=== PATIENT | female | born 1995 | race Caucasian/White ===

== ENCOUNTER 2024-06-18 11:48 | Emergency (ER) | payer BC ==
[2024-06-18 12:00] VITALS: BP 114/78; PULSE 109; RESP 18; TEMP 100.8; BMI 31.3
[2024-06-18] MEDS ORDERED: guaiFENesin/D-METHORPHAN HB 10 ML UNIT-DOSE CUPS ONE (12:17)
[2024-06-18] MEDS ORDERED: IBUPROFEN 600 MG TABLET (FP) PO ONE (12:18)
[2024-06-18] MEDS: IBUPROFEN 600 MG TABLET (FP) PO ONE (12:25)
[2024-06-18] MEDS: guaiFENesin/D-METHORPHAN HB 10 ML UNIT-DOSE CUPS PO ONE (12:26)
== END 2024-06-18 13:22 | disposition home or self-care (01) ==
LOC: JERFT 11:48
DX: J10.1 Influenza due to other identified influenza virus with other respiratory manifestations (principal); R50.9 Fever, unspecified; R05.9 Cough, unspecified; M79.10 Myalgia, unspecified site; R09.81 Nasal congestion; R53.83 Other fatigue; R51.9 Headache, unspecified; Z20.822 Contact with and (suspected) exposure to COVID-19
CPT/HCPCS: 0241U-QW; 71046-TC-FY; 99284-25